=== PATIENT | female | born 1945 | race Caucasian/White ===

== ENCOUNTER 2017-07-14 04:39 | Observation (INO) | payer OTHER ==
[~2017-07-14 04:39] MED LIST: ACTONEL150 MG PO; ARAVA10 MG PO; ASPIR-LOW81 MG PO; Arava PO; CALCIUM 600 MG1 EACH PO; CENTRUM SILVER1 EAC3 PO; CLONAZEPAM0.5 MG PO; DELTASONE10 MG PO; DULCOLAX5 MG PO; EMBREL; ENBREL50 MG/1 ML SC; ENDOCET 5-3251 EACH PO; ESCITALOPRAM OXA5 MG PO; FISH OIL500 MG PO; FOLIC ACID1 MG PO; Flexeril PO; GEMFIBROZIL600 MG PO; KLONOPIN0.5 M1 PO; Klonopin PO; LEFLUNOMIDE10 MG PO; LEXAPRO5 MG PO; LIDODERM 5% P1 PATCH TD; LISINOPRIL-HCT1 EACH PO; LYRICA100 MG PO; MOBIC15 MG PO; MOBIC7.5 MG PO; NITROSTAT0.4 MG SL; Niacin PO; OxyCONTIN PO; Oyst-Cal D, Oscal W/ PO; PRAVASTATIN SOD80 MG PO; PROTONIX40 MG PO; QVAR 80 MCG IN7.3 GM IH; RECLAST5 MG/100 M IV; THERAGRAN1 TABLET PO; TOPROL XL100 MG PO; TRAMADOL HCL50 MG PO; TRAMADOL-ACETA1 EACH PO; Tylenol Regular Stre PO; ULTRAM50 MG PO; VENTOLIN HFA18 GM IH; VITAMIN D-32000 UNI1 PO; VITAMIN D1000 INTUN PO; VITAMIN D1000 UNIT PO; WOMEN'S 50+ DA1 EACH PO; XARELTO15 MG PO; ZESTORETIC 10-1 EAC1 PO; ZESTORETIC 10-1 EACH PO; ZOLEDRONIC5 MG/100 M IV; Zestoretic,Prinzide PO
[2017-07-14 05:49] LABS: HEMATOCRIT 40.5 % (36.0-46.0); MCH 29.5 PG (29.0-34.0); MCHC 32.6 G/DL (30.0-36.0); MCV 90.6 FL (83-99); MEAN PLAT.VOLUME 11.3 uM^3 (9.5-12.4); PLATELET COUNT 177 K/uL (156-360); RBC DIS.WIDTH-CV 12.7 % (11.8-14.6); RBC DIS.WIDTH-SD 41.6 % (39-53); RED BLOOD COUNT 4.47 M/uL (3.80-5.20); WHITE BLOOD COUNT 11.2 K/uL (4.1-10.2)
[2017-07-14 05:54] LABS: INTER. NORMALIZED RATIO 1.2; PROTHROMBIN TIME 13.3 SEC (10.2-12.9)
[2017-07-14 05:57] LABS: PTT 33.6 SEC (25-37)
[2017-07-14 05:57] LABS: CHLORIDE 104 mEq/L (99-109); POTASSIUM 4.3 mEq/L (3.7-5.4); SODIUM 141 mEq/L (136-147)
[2017-07-14 06:00] LABS: GLUCOSE 149 mg/dL (70-99)
[2017-07-14 06:01] LABS: ANION GAP 15 MEQ/L (2-14)
[2017-07-14 06:02] LABS: TOTAL BILIRUBIN 0.2 mg/dL (0.0-1.0)
[2017-07-14 06:03] LABS: ALKALINE PHOSPHATASE 58 IU/L (3-129)
[2017-07-14 06:04] LABS: GFR ESTIMATE (CALCULATED) 52 mL/min/
[2017-07-14 06:05] LABS: DIRECT BILIRUBIN 0.1 mg/dL (0.0-0.3); UREA NITROGEN (BUN) 30 mg/dL (9-23)
[2017-07-14 06:07] LABS: LIPASE 55 U/L (1.0-51.0)
[2017-07-14 06:10] LABS: TROP-I INTERPRETATION NEGATIVE; TROPONIN-I < 0.01 ng/mL (0.0-0.30)
[2017-07-14 08:04] LABS: D-DIMER ELISA < 150.00 ng/mLDDU (<230)
[2017-07-14] MEDS ORDERED: ONGLYZA2.5 MG PO (09:06)
[2017-07-14] MEDS ORDERED: GLUCOPHAGE XR,500 MG PO (09:07)
[2017-07-14] MEDS ORDERED: XARELTO20 MG PO (09:12)
[2017-07-14] MEDS ORDERED: REMICADE10 MG/ML IV (09:13)
[2017-07-14] MEDS ORDERED: PROLIA60 MG/1 ML SC (09:14)
[2017-07-14 13:08] LABS: TROP-I INTERPRETATION NEGATIVE; TROPONIN-I 0.01 ng/mL (0.0-0.30)
[2017-07-14 17:30] VITALS: BP 163/72
[2017-07-14 17:31] LABS: POINT-OF-CARE METER ID UU13113700
[2017-07-14 19:14] LABS: TROP-I INTERPRETATION NEGATIVE; TROPONIN-I 0.04 ng/mL (0.0-0.30)
[2017-07-14 19:42] VITALS: BP 108/52
[2017-07-14 20:40] VITALS: BP 128/68
[2017-07-14 21:49] LABS: POINT-OF-CARE METER ID UU13113831
[2017-07-14 23:50] VITALS: BP 170/79
[2017-07-15 01:13] LABS: TROP-I INTERPRETATION NEGATIVE; TROPONIN-I < 0.01 ng/mL (0.0-0.30)
[2017-07-15 04:00] VITALS: BP 125/60
[2017-07-15] MEDS ORDERED: LISINOPRIL10 MG PO (09:15)
[2017-07-15 09:30] VITALS: BP 117/54
== END 2017-07-15 14:18 | disposition home or self-care (01) ==
LOC: EME 04:39 → 5WEST 07:42 → EDOF 07:42 → ENRESERV 07:52 → 5WEST 16:49 → ENPENDDIS 07-15 → 5WEST 07-15 14:18
PROVIDERS: Emergency Medicine; Hospitalist
DX: R07.89 Other chest pain (principal); I10 Essential (primary) hypertension; Z86.711 Personal history of pulmonary embolism; I25.2 Old myocardial infarction; F41.9 Anxiety disorder, unspecified; E78.5 Hyperlipidemia, unspecified; K21.9 Gastro-esophageal reflux disease without esophagitis; E11.9 Type 2 diabetes mellitus without complications; Z79.01 Long term (current) use of anticoagulants; M06.9 Rheumatoid arthritis, unspecified; M41.9 Scoliosis, unspecified; Z87.891 Personal history of nicotine dependence; Z95.828 Presence of other vascular implants and grafts; M81.0 Age-related osteoporosis without current pathological fracture; Z88.1 Allergy status to other antibiotic agents; Z88.8 Allergy status to other drugs, medicaments and biological substances
CPT/HCPCS: 71020; 80048; 80076; 81003; 82948; 83605; 83690; 84484; 85027; 85379; 85610; 85730; 93005; 94799; 99202; 99281; 99285; G0378; J7030

== ENCOUNTER 2017-07-25 03:36 | Emergency (ER) | payer OTHER ==
[~2017-07-25] VITALS: Ht 160 cm; Wt 83.0 kg
[~2017-07-25 03:36] MED LIST changes: +GLUCOPHAGE XR,500 MG PO; +LISINOPRIL10 MG PO; +ONGLYZA2.5 MG PO; +PROLIA60 MG/1 ML SC; +REMICADE10 MG/ML IV; +XARELTO20 MG PO
[2017-07-25 04:45] LABS: HEMATOCRIT 40.4 % (36.0-46.0); MCH 29.1 PG (29.0-34.0); MCHC 31.9 G/DL (30.0-36.0); MCV 91.2 FL (83-99); MEAN PLAT.VOLUME 11.5 uM^3 (9.5-12.4); PLATELET COUNT 199 K/uL (156-360); RBC DIS.WIDTH-CV 13.1 % (11.8-14.6); RBC DIS.WIDTH-SD 43.6 % (39-53); RED BLOOD COUNT 4.43 M/uL (3.80-5.20); WHITE BLOOD COUNT 8.7 K/uL (4.1-10.2)
[2017-07-25 04:58] LABS: CHLORIDE 107 mEq/L (99-109); POTASSIUM 3.8 mEq/L (3.7-5.4); SODIUM 142 mEq/L (136-147)
[2017-07-25 04:59] LABS: GLUCOSE 152 mg/dL (70-99)
[2017-07-25 05:01] LABS: ANION GAP 13 MEQ/L (2-14)
[2017-07-25 05:03] LABS: GFR ESTIMATE (CALCULATED) 47 mL/min/
[2017-07-25 05:04] LABS: UREA NITROGEN (BUN) 25 mg/dL (9-23)
[2017-07-25 05:07] LABS: TROP-I INTERPRETATION NEGATIVE; TROPONIN-I < 0.01 ng/mL (0.0-0.30)
[2017-07-25 06:15] VITALS: BP 159/88
== END 2017-07-25 06:21 | disposition home or self-care (01) ==
LOC: EME 03:36
PROVIDERS: Emergency Medicine
DX: R07.9 Chest pain, unspecified (principal); I25.2 Old myocardial infarction; E11.9 Type 2 diabetes mellitus without complications; Z79.84 Long term (current) use of oral hypoglycemic drugs; I10 Essential (primary) hypertension; Z86.718 Personal history of other venous thrombosis and embolism; Z87.891 Personal history of nicotine dependence; F41.9 Anxiety disorder, unspecified; K21.9 Gastro-esophageal reflux disease without esophagitis; M06.9 Rheumatoid arthritis, unspecified; Z88.8 Allergy status to other drugs, medicaments and biological substances
CPT/HCPCS: 71020; 80048; 84484; 85027; 93005; 99281; 99284

== ENCOUNTER 2017-08-03 04:32 | Emergency (ER) | payer OTHER ==
[~2017-08-03] VITALS: Ht 160 cm; Wt 83.1 kg
[2017-08-03 06:09] LABS: CHLORIDE 106 mEq/L (99-109); EOSINOPHIL (%) 2.6 % (0-5); EOSINOPHIL COUNT 0.2 K/uL (0-0.3); HEMATOCRIT 42.1 % (36.0-46.0); IMMATURE GRANULOCYTE (%) 0.2 % (0.0-0.7); INSTRUMENT ABS NEUTROPHIL CT 5.5 K/uL; MCHC 32.1 G/DL (30.0-36.0); MCV 90.5 FL (83-99); MEAN PLAT.VOLUME 11.7 uM^3 (9.5-12.4); MONOCYTE (%) 8.5 % (3-12); MONOCYTE COUNT 0.7 K/uL (0-0.8); NEUTROPHIL (%) 64.6 % (45-76); NEUTROPHIL COUNT 5.5 K/uL (1.8-6.4); PLATELET COUNT 191 K/uL (156-360); POTASSIUM 3.9 mEq/L (3.7-5.4); RBC DIS.WIDTH-SD 42.9 % (39-53); RED BLOOD COUNT 4.65 M/uL (3.80-5.20); SODIUM 139 mEq/L (136-147); WHITE BLOOD COUNT 8.5 K/uL (4.1-10.2)
[2017-08-03 06:10] LABS: GLUCOSE 149 mg/dL (70-99)
[2017-08-03 06:12] LABS: ANION GAP 7 MEQ/L (2-14)
[2017-08-03 06:14] LABS: GFR ESTIMATE (CALCULATED) 52 mL/min/
[2017-08-03 06:15] LABS: UREA NITROGEN (BUN) 15 mg/dL (9-23)
[2017-08-03] MEDS ORDERED: XANAX0.5 MG PO (06:28)
[2017-08-03 06:37] VITALS: BP 132/79
== END 2017-08-03 06:39 | disposition home or self-care (01) ==
LOC: EME 04:32
PROVIDERS: Emergency Medicine
DX: F41.1 Generalized anxiety disorder (principal); I10 Essential (primary) hypertension; R42 Dizziness and giddiness; E11.9 Type 2 diabetes mellitus without complications; Z79.84 Long term (current) use of oral hypoglycemic drugs; I25.2 Old myocardial infarction; K21.9 Gastro-esophageal reflux disease without esophagitis; M06.9 Rheumatoid arthritis, unspecified; Z86.718 Personal history of other venous thrombosis and embolism; Z88.8 Allergy status to other drugs, medicaments and biological substances; Z87.891 Personal history of nicotine dependence
CPT/HCPCS: 70450; 80048; 85025; 93005; 99281; 99284

== ENCOUNTER 2017-08-06 01:06 | Emergency (ER) | payer OTHER ==
[~2017-08-06] VITALS: Ht 162.6 cm; Wt 83.1 kg
[~2017-08-06 01:06] MED LIST changes: +XANAX0.5 MG PO
[2017-08-06 03:55] LABS: HEMATOCRIT 40.7 % (36.0-46.0); MCH 29.6 PG (29.0-34.0); MCHC 32.4 G/DL (30.0-36.0); MCV 91.3 FL (83-99); PLATELET COUNT 181 K/uL (156-360); RBC DIS.WIDTH-SD 43.4 % (39-53); RED BLOOD COUNT 4.46 M/uL (3.80-5.20); WHITE BLOOD COUNT 7.7 K/uL (4.1-10.2)
[2017-08-06 04:06] LABS: CHLORIDE 104 mEq/L (99-109); POTASSIUM 3.6 mEq/L (3.7-5.4); SODIUM 141 mEq/L (136-147)
[2017-08-06 04:08] LABS: GLUCOSE 140 mg/dL (70-99)
[2017-08-06 04:09] LABS: ANION GAP 10 MEQ/L (2-14)
[2017-08-06 04:10] LABS: TOTAL BILIRUBIN 0.3 mg/dL (0.0-1.0)
[2017-08-06 04:11] LABS: ALKALINE PHOSPHATASE 49 IU/L (3-129)
[2017-08-06 04:12] LABS: GFR ESTIMATE (CALCULATED) 58 mL/min/
[2017-08-06 04:13] LABS: UREA NITROGEN (BUN) 22 mg/dL (9-23)
[2017-08-06 04:15] LABS: LIPASE 41 U/L (1.0-51.0)
[2017-08-06 04:16] LABS: TROP-I INTERPRETATION NEGATIVE; TROPONIN-I < 0.01 ng/mL (0.0-0.30)
[2017-08-06 05:55] VITALS: BP 139/89
== END 2017-08-06 06:03 | disposition home or self-care (01) ==
LOC: EME 01:06
PROVIDERS: Emergency Medicine
DX: I10 Essential (primary) hypertension (principal); R51 Headache; M06.9 Rheumatoid arthritis, unspecified; E11.9 Type 2 diabetes mellitus without complications; Z79.84 Long term (current) use of oral hypoglycemic drugs; Z87.891 Personal history of nicotine dependence; Z88.8 Allergy status to other drugs, medicaments and biological substances
CPT/HCPCS: 80053; 83690; 84484; 85027; 93005; 99281; 99284

== ENCOUNTER 2018-03-25 09:03 | Inpatient (IN) | payer OTHER ==
[~2018-03-25] VITALS: Ht 160 cm; Wt 82.5 kg
[2018-03-25 10:09] LABS: HEMOGLOBIN 13.9 G/DL (11.9-15.5); MCH 29.1 PG (29.0-34.0); MCHC 32.3 G/DL (30.0-36.0); MCV 90.1 FL (83-99); PLATELET COUNT 244 K/uL (156-360); RBC DIS.WIDTH-CV 12.7 % (11.8-14.6); RBC DIS.WIDTH-SD 42.4 % (39-53); RED BLOOD COUNT 4.77 M/uL (3.80-5.20); WHITE BLOOD COUNT 12.8 K/uL (4.1-10.2)
[2018-03-25 10:13] LABS: ALBUMIN 4.4 g/dL (3.2-4.8); CHLORIDE 102 mEq/L (99-109); POTASSIUM 4.8 mEq/L (3.7-5.4); SODIUM 139 mEq/L (136-147)
[2018-03-25 10:15] LABS: GLUCOSE 235 mg/dL (70-99)
[2018-03-25 10:16] LABS: TOTAL PROTEIN 8.7 g/dL (6.4-8.3)
[2018-03-25 10:17] LABS: TOTAL BILIRUBIN 0.3 mg/dL (0.0-1.0)
[2018-03-25 10:19] LABS: ALKALINE PHOSPHATASE 82 IU/L (3-129); CREATININE 1.9 mg/dL (0.6-1.3); GFR ESTIMATE (CALCULATED) 28 mL/min/
[2018-03-25 10:20] LABS: UREA NITROGEN (BUN) 39 mg/dL (9-23)
[2018-03-25 10:21] LABS: AST (GOT) 20 IU/L (2-34)
[2018-03-25 10:22] LABS: ALT (GPT) 24 IU/L (3-49)
[2018-03-25 10:23] LABS: LIPASE 67 U/L (1.0-51.0)
[2018-03-25 10:51] LABS: C DIFF TOXIN POSITIVE (NEGATIVE)
[2018-03-25] MEDS ORDERED: ASPIR-LOW81 MG PO (13:29)
[2018-03-25] MEDS ORDERED: LISINOPRIL-HCT1 EACH PO (13:31)
[2018-03-25] MEDS ORDERED: PROTONIX40 MG PO (13:32)
[2018-03-25] MEDS ORDERED: MIRTAZAPINE7.5 MG PO (13:33)
[2018-03-25] MEDS ORDERED: POTASSIUM CITR15 MEQ PO (13:33)
[2018-03-25] MEDS ORDERED: BUSPAR10 MG PO (13:34)
[2018-03-25] MEDS ORDERED: CLEOCIN300 MG PO (13:35)
[2018-03-25 17:43] VITALS: BP 180/78
[2018-03-25 23:55] VITALS: BP 168/88
[2018-03-26 05:48] LABS: HEMATOCRIT 36.3 % (36.0-46.0); MCH 28.5 PG (29.0-34.0); MCHC 31.7 G/DL (30.0-36.0); MCV 89.9 FL (83-99); PLATELET COUNT 177 K/uL (156-360); RBC DIS.WIDTH-CV 12.7 % (11.8-14.6); RBC DIS.WIDTH-SD 41.6 % (39-53); RED BLOOD COUNT 4.04 M/uL (3.80-5.20); WHITE BLOOD COUNT 10.9 K/uL (4.1-10.2)
[2018-03-26 05:53] LABS: HEMOGLOBIN 11.5 G/DL (11.9-15.5)
[2018-03-26 06:01] LABS: CHLORIDE 106 MEQ/L (99-109); CREATININE 1.7 MG/DL (0.6-1.3); GFR ESTIMATE (CALCULATED) 32 mL/min/; GLUCOSE 165 mg/dL (70-99); POTASSIUM 5.6 MEQ/L (3.7-5.4); SODIUM 137 MEQ/L (136-147); UREA NITROGEN (BUN) 35 mg/dL (9-23)
[2018-03-26 08:07] VITALS: BP 166/80
[2018-03-26 10:43] LABS: HEMOGLOBIN A1c (GLYCOHEMOGLOB) 6.8 % (Below 5.7)
[2018-03-26 12:22] LABS: CHLORIDE 104 MEQ/L (99-109); CREATININE 1.6 MG/DL (0.6-1.3); GFR ESTIMATE (CALCULATED) 34 mL/min/; GLUCOSE 223 mg/dL (70-99); POTASSIUM 4.5 MEQ/L (3.7-5.4); SODIUM 136 MEQ/L (136-147); UREA NITROGEN (BUN) 36 mg/dL (9-23)
[2018-03-26 17:15] VITALS: BP 148/76
[2018-03-27 00:45] VITALS: BP 152/77
[2018-03-27 05:51] LABS: MCH 28.6 PG (29.0-34.0); MCHC 32.5 G/DL (30.0-36.0); MCV 88.1 FL (83-99); RBC DIS.WIDTH-CV 12.8 % (11.8-14.6); RBC DIS.WIDTH-SD 41.2 % (39-53); RED BLOOD COUNT 4.54 M/uL (3.80-5.20); WHITE BLOOD COUNT 14.5 K/uL (4.1-10.2)
[2018-03-27 05:52] LABS: PLATELET COUNT 250 K/uL (156-360)
[2018-03-27 06:24] LABS: CHLORIDE 99 MEQ/L (99-109); CREATININE 1.6 MG/DL (0.6-1.3); GFR ESTIMATE (CALCULATED) 34 mL/min/; GLUCOSE 174 mg/dL (70-99); POTASSIUM 4.4 MEQ/L (3.7-5.4); SODIUM 134 MEQ/L (136-147); UREA NITROGEN (BUN) 35 mg/dL (9-23)
[2018-03-27 07:57] VITALS: BP 195/83
[2018-03-27 08:15] VITALS: BP 148/66
[2018-03-27 16:27] VITALS: BP 165/72
[2018-03-27 23:38] VITALS: BP 183/83
[2018-03-28 06:06] LABS: HEMATOCRIT 38.4 % (36.0-46.0); HEMOGLOBIN 12.8 G/DL (11.9-15.5); MCH 28.7 PG (29.0-34.0); MCHC 33.3 G/DL (30.0-36.0); MCV 86.1 FL (83-99); PLATELET COUNT 228 K/uL (156-360); RBC DIS.WIDTH-CV 12.7 % (11.8-14.6); RBC DIS.WIDTH-SD 39.8 % (39-53); RED BLOOD COUNT 4.46 M/uL (3.80-5.20); WHITE BLOOD COUNT 13.6 K/uL (4.1-10.2)
[2018-03-28 06:10] VITALS: BP 148/76
[2018-03-28 06:23] LABS: CHLORIDE 96 MEQ/L (99-109); CREATININE 1.4 MG/DL (0.6-1.3); GFR ESTIMATE (CALCULATED) 40 mL/min/; GLUCOSE 192 mg/dL (70-99); POTASSIUM 3.8 MEQ/L (3.7-5.4); SODIUM 131 MEQ/L (136-147); UREA NITROGEN (BUN) 30 mg/dL (9-23)
[2018-03-28 08:01] VITALS: BP 181/75
[2018-03-28 10:28] VITALS: BP 136/62
[2018-03-28 15:19] VITALS: BP 147/71
[2018-03-29 00:29] VITALS: BP 168/87
[2018-03-29 07:24] VITALS: BP 160/82
[2018-03-29 09:15] LABS: CHLORIDE 93 MEQ/L (99-109); CREATININE 1.4 MG/DL (0.6-1.3); GFR ESTIMATE (CALCULATED) 40 mL/min/; GLUCOSE 196 mg/dL (70-99); POTASSIUM 3.8 MEQ/L (3.7-5.4); SODIUM 130 MEQ/L (136-147); UREA NITROGEN (BUN) 32 mg/dL (9-23)
[2018-03-29 15:53] VITALS: BP 149/79
[2018-03-29 23:33] VITALS: BP 159/65
[2018-03-30 07:03] LABS: BASOPHIL (%) 0.2 % (0-1); EOSINOPHIL (%) 0.2 % (0-5); HEMATOCRIT 40.2 % (36.0-46.0); HEMOGLOBIN 13.4 G/DL (11.9-15.5); IMMATURE GRANULOCYTE (%) 0.2 % (0.0-0.7); LYMPHOCYTE (%) 10.5 % (15-42); LYMPHOCYTE COUNT 1.3 K/uL (1.0-2.8); MCH 28.2 PG (29.0-34.0); MCHC 33.3 G/DL (30.0-36.0); MCV 84.6 FL (83-99); MONOCYTE (%) 7.5 % (3-12); MONOCYTE COUNT 0.9 K/uL (0-0.8); NEUTROPHIL (%) 81.4 % (45-76); NEUTROPHIL COUNT 10.3 K/uL (1.8-6.4); RBC DIS.WIDTH-CV 12.6 % (11.8-14.6); RBC DIS.WIDTH-SD 38.7 % (39-53); RED BLOOD COUNT 4.75 M/uL (3.80-5.20); WHITE BLOOD COUNT 12.6 K/uL (4.1-10.2)
[2018-03-30 07:24] LABS: ALBUMIN 2.8 G/DL (3.2-4.8); ALKALINE PHOSPHATASE 89 IU/L (3-129); ALT (GPT) 53 IU/L (3-49); AST (GOT) 40 IU/L (2-34); CHLORIDE 92 MEQ/L (99-109); CREATININE 1.4 MG/DL (0.6-1.3); GFR ESTIMATE (CALCULATED) 40 mL/min/; GLUCOSE 194 mg/dL (70-99); POTASSIUM 3.7 MEQ/L (3.7-5.4); SODIUM 130 MEQ/L (136-147); TOTAL BILIRUBIN 0.7 MG/DL (0.0-1.0); TOTAL PROTEIN 5.5 G/DL (6.4-8.3); UREA NITROGEN (BUN) 36 mg/dL (9-23)
[2018-03-30 07:46] LABS: PLATELET COUNT 319 K/uL (156-360)
[2018-03-30 07:54] VITALS: BP 142/79
[2018-03-30 16:02] VITALS: BP 137/67
[2018-03-30 23:29] VITALS: BP 126/61
[2018-03-31 06:18] LABS: HEMATOCRIT 39.4 % (36.0-46.0); HEMOGLOBIN 12.9 G/DL (11.9-15.5); MCH 28.2 PG (29.0-34.0); MCHC 32.7 G/DL (30.0-36.0); MCV 86.2 FL (83-99); PLATELET COUNT 292 K/uL (156-360); RBC DIS.WIDTH-CV 12.7 % (11.8-14.6); RED BLOOD COUNT 4.57 M/uL (3.80-5.20)
[2018-03-31 06:47] LABS: CHLORIDE 93 MEQ/L (99-109); CREATININE 1.6 MG/DL (0.6-1.3); GFR ESTIMATE (CALCULATED) 34 mL/min/; GLUCOSE 149 mg/dL (70-99); POTASSIUM 3.9 MEQ/L (3.7-5.4); SODIUM 132 MEQ/L (136-147); UREA NITROGEN (BUN) 39 mg/dL (9-23)
[2018-03-31 07:17] VITALS: BP 148/70
[2018-03-31 22:58] VITALS: BP 158/69
[2018-04-01 07:31] VITALS: BP 164/68
[2018-04-01 07:47] LABS: CHLORIDE 96 MEQ/L (99-109); CREATININE 1.4 MG/DL (0.6-1.3); GFR ESTIMATE (CALCULATED) 40 mL/min/; GLUCOSE 139 mg/dL (70-99); POTASSIUM 4.1 MEQ/L (3.7-5.4); SODIUM 133 MEQ/L (136-147); UREA NITROGEN (BUN) 35 mg/dL (9-23)
[2018-04-01 16:02] VITALS: BP 148/64
[2018-04-02] VITALS (12 sets, daily range): BP systolic 88–159; BP diastolic 53–67
[2018-04-02 06:41] LABS: CHLORIDE 100 MEQ/L (99-109); CREATININE 1.6 MG/DL (0.6-1.3); GFR ESTIMATE (CALCULATED) 34 mL/min/; POTASSIUM 4.5 MEQ/L (3.7-5.4); SODIUM 134 MEQ/L (136-147)
[2018-04-02 06:43] LABS: GLUCOSE 275 mg/dL (70-99); UREA NITROGEN (BUN) 56 mg/dL (9-23)
[2018-04-02 10:58] LABS: HEMATOCRIT 27.2 % (36.0-46.0); MCH 28.6 PG (29.0-34.0); MCHC 31.6 G/DL (30.0-36.0); PLATELET COUNT 277 K/uL (156-360); RBC DIS.WIDTH-SD 42.9 % (39-53); WHITE BLOOD COUNT 13.5 K/uL (4.1-10.2)
[2018-04-02 10:59] LABS: HEMOGLOBIN 8.6 G/DL (11.9-15.5); MCV 90.4 FL (83-99); RED BLOOD COUNT 3.01 M/uL (3.80-5.20)
[2018-04-02 13:07] LABS: STOOL OCCULT BLD 1ST SPECIMEN POSITIVE
[2018-04-02 16:16] LABS: PTT 38.2 SEC (25-37)
[2018-04-02 19:02] LABS: HEMOGLOBIN 7.7 G/DL (11.9-15.5); MCV 90.2 FL (83-99)
[2018-04-03] VITALS (10 sets, daily range): BP systolic 135–162; BP diastolic 56–77
[2018-04-03 06:14] LABS: HEMATOCRIT 31.7 % (36.0-46.0); MCH 28.4 PG (29.0-34.0); MCHC 33.1 G/DL (30.0-36.0); PLATELET COUNT 258 K/uL (156-360); RBC DIS.WIDTH-CV 14.3 % (11.8-14.6); RBC DIS.WIDTH-SD 44.3 % (39-53); WHITE BLOOD COUNT 13.1 K/uL (4.1-10.2)
[2018-04-03 06:22] LABS: HEMOGLOBIN 10.5 G/DL (11.9-15.5); MCV 85.7 FL (83-99)
[2018-04-03 06:28] LABS: ALBUMIN 2.2 G/DL (3.2-4.8); MAGNESIUM 1.4 mg/dl (1.3-2.7)
[2018-04-03 06:30] LABS: CHLORIDE 103 MEQ/L (99-109); CREATININE 1.7 MG/DL (0.6-1.3); GFR ESTIMATE (CALCULATED) 32 mL/min/; GLUCOSE 190 mg/dL (70-99); POTASSIUM 3.8 MEQ/L (3.7-5.4); SODIUM 140 MEQ/L (136-147); UREA NITROGEN (BUN) 67 mg/dL (9-23)
[2018-04-03 06:43] LABS: HEMATOCRIT 31.3 % (36.0-46.0); HEMOGLOBIN 10.5 G/DL (11.9-15.5); MCH 28.6 PG (29.0-34.0); MCHC 33.5 G/DL (30.0-36.0); MCV 85.3 FL (83-99); PLATELET COUNT 254 K/uL (156-360); RBC DIS.WIDTH-CV 14.3 % (11.8-14.6); RBC DIS.WIDTH-SD 44.7 % (39-53); RED BLOOD COUNT 3.67 M/uL (3.80-5.20); WHITE BLOOD COUNT 12.7 K/uL (4.1-10.2)
[2018-04-03 08:11] LABS: PTT 28.1 SEC (25-37)
[2018-04-03 08:14] LABS: INTER. NORMALIZED RATIO 1.6
[2018-04-03 11:57] LABS: HEMATOCRIT 30.7 % (36.0-46.0); HEMOGLOBIN 10.2 G/DL (11.9-15.5)
[2018-04-03 15:02] LABS: HEMATOCRIT 29.5 % (36.0-46.0); HEMOGLOBIN 9.9 G/DL (11.9-15.5)
[2018-04-03 18:53] LABS: HEMOGLOBIN 9.1 G/DL (11.9-15.5); MCV 87.1 FL (83-99)
[2018-04-04 00:35] VITALS: BP 154/61
[2018-04-04 03:52] LABS: HEMATOCRIT 26.2 % (36.0-46.0); HEMOGLOBIN 8.9 G/DL (11.9-15.5); MCH 29.7 PG (29.0-34.0); MCV 87.3 FL (83-99); PLATELET COUNT 228 K/uL (156-360); RBC DIS.WIDTH-CV 14.9 % (11.8-14.6); RBC DIS.WIDTH-SD 47.6 % (39-53); WHITE BLOOD COUNT 11.3 K/uL (4.1-10.2)
[2018-04-04 03:59] LABS: INTER. NORMALIZED RATIO 1.3
[2018-04-04 04:02] LABS: ALBUMIN 2.2 g/dL (3.2-4.8); CHLORIDE 106 mEq/L (99-109); POTASSIUM 3.9 mEq/L (3.7-5.4); SODIUM 139 mEq/L (136-147)
[2018-04-04 04:08] LABS: GFR ESTIMATE (CALCULATED) 47 mL/min/; PHOSPHORUS 2.7 mg/dL (2.5-4.9)
[2018-04-04 04:10] LABS: CREATININE 1.2 mg/dL (0.6-1.3); GLUCOSE 108 mg/dL (70-99); UREA NITROGEN (BUN) 33 mg/dL (9-23)
[2018-04-04 07:32] VITALS: BP 137/63
[2018-04-04 11:13] LABS: HEMATOCRIT 27.5 % (36.0-46.0); MCV 88.7 FL (83-99)
[2018-04-04 14:50] LABS: HEMATOCRIT 26.2 % (36.0-46.0); HEMOGLOBIN 8.5 G/DL (11.9-15.5); MCV 88.8 FL (83-99)
[2018-04-04 15:25] VITALS: BP 161/74
[2018-04-04 19:05] LABS: HEMOGLOBIN 9.2 G/DL (11.9-15.5); MCV 89.2 FL (83-99)
[2018-04-04 22:40] LABS: HEMOGLOBIN 9.2 G/DL (11.9-15.5); MCV 88.8 FL (83-99)
[2018-04-05 00:17] VITALS: BP 172/73
[2018-04-05 03:18] LABS: HEMATOCRIT 27.3 % (36.0-46.0); HEMATOCRIT 27.5 % (36.0-46.0); HEMOGLOBIN 9.1 G/DL (11.9-15.5); HEMOGLOBIN 9.2 G/DL (11.9-15.5); MCH 29.6 PG (29.0-34.0); MCHC 33.5 G/DL (30.0-36.0); MCV 88.4 FL (83-99); MCV 88.9 FL (83-99); PLATELET COUNT 249 K/uL (156-360); RBC DIS.WIDTH-CV 14.6 % (11.8-14.6); RBC DIS.WIDTH-SD 47.1 % (39-53); RED BLOOD COUNT 3.11 M/uL (3.80-5.20); WHITE BLOOD COUNT 9.9 K/uL (4.1-10.2)
[2018-04-05 03:27] LABS: ALBUMIN 2.3 g/dL (3.2-4.8)
[2018-04-05 03:28] LABS: CHLORIDE 102 mEq/L (99-109); POTASSIUM 4.2 mEq/L (3.7-5.4); SODIUM 138 mEq/L (136-147)
[2018-04-05 03:30] LABS: GLUCOSE 100 mg/dL (70-99)
[2018-04-05 03:33] LABS: CREATININE 1.1 mg/dL (0.6-1.3); GFR ESTIMATE (CALCULATED) 52 mL/min/; PHOSPHORUS 3.2 mg/dL (2.5-4.9)
[2018-04-05 03:34] LABS: UREA NITROGEN (BUN) 21 mg/dL (9-23)
[2018-04-05 07:25] VITALS: BP 148/62
[2018-04-05 15:47] LABS: HEMATOCRIT 30.5 % (36.0-46.0); HEMOGLOBIN 9.7 G/DL (11.9-15.5); MCV 90.2 FL (83-99)
[2018-04-05 15:59] VITALS: BP 173/78
[2018-04-05 23:09] VITALS: BP 183/78
[2018-04-06 05:34] LABS: HEMATOCRIT 29.6 % (36.0-46.0); HEMOGLOBIN 9.4 G/DL (11.9-15.5); MCH 28.3 PG (29.0-34.0); MCHC 31.8 G/DL (30.0-36.0); MCV 89.2 FL (83-99); PLATELET COUNT 279 K/uL (156-360); RBC DIS.WIDTH-CV 14.3 % (11.8-14.6); RBC DIS.WIDTH-SD 46.2 % (39-53); RED BLOOD COUNT 3.32 M/uL (3.80-5.20); WHITE BLOOD COUNT 11.7 K/uL (4.1-10.2)
[2018-04-06 06:14] LABS: ALBUMIN 2.2 G/DL (3.2-4.8); CHLORIDE 100 MEQ/L (99-109); CREATININE 1.5 MG/DL (0.6-1.3); GFR ESTIMATE (CALCULATED) 36 mL/min/; GLUCOSE 117 mg/dL (70-99); PHOSPHORUS 3.6 mg/dL (2.5-4.9); SODIUM 139 MEQ/L (136-147); UREA NITROGEN (BUN) 23 mg/dL (9-23)
[2018-04-06 07:16] VITALS: BP 154/79
[2018-04-06 11:00] VITALS: BP 155/79
[2018-04-06 12:24] LABS: HEMATOCRIT 32.3 % (36.0-46.0); HEMOGLOBIN 10.2 G/DL (11.9-15.5); MCV 89.7 FL (83-99)
[2018-04-06 15:21] VITALS: BP 169/77
[2018-04-06 18:27] LABS: HEMATOCRIT 32.4 % (36.0-46.0); HEMOGLOBIN 10.4 G/DL (11.9-15.5); MCV 89.5 FL (83-99)
[2018-04-06 20:01] VITALS: BP 166/77
[2018-04-07 00:12] VITALS: BP 171/76
[2018-04-07 05:51] LABS: HEMATOCRIT 29.6 % (36.0-46.0); HEMOGLOBIN 9.5 G/DL (11.9-15.5); MCH 28.6 PG (29.0-34.0); MCHC 32.1 G/DL (30.0-36.0); MCV 89.2 FL (83-99); PLATELET COUNT 307 K/uL (156-360); RBC DIS.WIDTH-CV 14.2 % (11.8-14.6); RED BLOOD COUNT 3.32 M/uL (3.80-5.20); WHITE BLOOD COUNT 11.6 K/uL (4.1-10.2)
[2018-04-07 06:26] LABS: CHLORIDE 101 MEQ/L (99-109); CREATININE 1.4 MG/DL (0.6-1.3); GFR ESTIMATE (CALCULATED) 40 mL/min/; GLUCOSE 114 mg/dL (70-99); POTASSIUM 4.2 MEQ/L (3.7-5.4); SODIUM 140 MEQ/L (136-147); UREA NITROGEN (BUN) 23 mg/dL (9-23)
[2018-04-07 07:50] VITALS: BP 153/68
[2018-04-07 15:22] VITALS: BP 162/68
[2018-04-08 00:52] VITALS: BP 142/80
[2018-04-08 06:21] LABS: HEMATOCRIT 30.5 % (36.0-46.0); HEMOGLOBIN 9.6 G/DL (11.9-15.5); MCH 28.3 PG (29.0-34.0); MCHC 31.5 G/DL (30.0-36.0); PLATELET COUNT 321 K/uL (156-360); RBC DIS.WIDTH-CV 14.2 % (11.8-14.6); RED BLOOD COUNT 3.39 M/uL (3.80-5.20)
[2018-04-08 08:24] VITALS: BP 148/64
[2018-04-08] MEDS ORDERED: VANCOCIN HCL125 MG PO (11:07)
[2018-04-08] MEDS ORDERED: BENTYL10 MG PO (11:07)
[2018-04-08] MEDS ORDERED: AMLODIPINE BESYL5 MG PO (11:07)
[2018-04-08] MEDS ORDERED: LISINOPRIL10 MG PO (11:08)
[2018-04-08] MEDS ORDERED: FAMOTIDINE20 MG PO (16:18)
== END 2018-04-08 12:50 | disposition home or self-care (01) | DRG 871 ==
LOC: EME 09:03 → 5SOUTH 13:41 → EDOF 13:41 → ENRESERV 13:53 → 5SOUTH 17:07
PROVIDERS: Hospitalist; Internal Medicine; Internal Medicine Gastroenterology; Nurse Practitioner Adult Health; Nurse Practitioner Family; Physician Assistant; Physician Assistant Medical
DX: A41.9 Sepsis, unspecified organism (principal); A04.72 Enterocolitis due to Clostridium difficile, not specified as recurrent; N17.9 Acute kidney failure, unspecified; R65.20 Severe sepsis without septic shock; K26.4 Chronic or unspecified duodenal ulcer with hemorrhage; E87.2 Acidosis; E86.0 Dehydration; E87.1 Hypo-osmolality and hyponatremia; I12.9 Hypertensive chronic kidney disease with stage 1 through stage 4 chronic kidney disease, or unspecified chronic kidney disease; N18.3 Chronic kidney disease, stage 3 (moderate); E11.22 Type 2 diabetes mellitus with diabetic chronic kidney disease; E11.65 Type 2 diabetes mellitus with hyperglycemia; D62 Acute posthemorrhagic anemia; K04.7 Periapical abscess without sinus; K25.9 Gastric ulcer, unspecified as acute or chronic, without hemorrhage or perforation; I25.10 Atherosclerotic heart disease of native coronary artery without angina pectoris; K21.9 Gastro-esophageal reflux disease without esophagitis; E78.5 Hyperlipidemia, unspecified; K44.9 Diaphragmatic hernia without obstruction or gangrene; M06.9 Rheumatoid arthritis, unspecified; F41.8 Other specified anxiety disorders; M81.0 Age-related osteoporosis without current pathological fracture; Z66 Do not resuscitate; E66.9 Obesity, unspecified; Z68.32 Body mass index [BMI] 32.0-32.9, adult; I25.2 Old myocardial infarction; Z79.01 Long term (current) use of anticoagulants; Z79.84 Long term (current) use of oral hypoglycemic drugs; Z79.82 Long term (current) use of aspirin; Z86.711 Personal history of pulmonary embolism; Z87.442 Personal history of urinary calculi; Z87.891 Personal history of nicotine dependence
CPT/HCPCS: 80048; 80048 91; 80053; 80069; 80306 90; 82040; 82272; 82310; 82948; 83036; 83605; 83690; 83735; 83930; 83935; 84300; 85014; 85018; 85025; 85027; 85610; 85730; 86850; 86900; 86901; 86920; 87040; 87493; 87506; 88305; 88342 TC; 94640 76; 99202; 99281; 99285; J0360; J0780; J1815; J1940; J2250; J2405; J2765; J3243; J3475; J7030; J7040; J7050; J7120; P9016; P9017; Q0169; S0028

== ENCOUNTER 2018-04-20 09:40 | Emergency (ER) | payer OTHER ==
[~2018-04-20] VITALS: Ht 160 cm; Wt 78.1 kg
[~2018-04-20 09:40] MED LIST changes: +AMLODIPINE BESYL5 MG PO; +BENTYL10 MG PO; +BUSPAR10 MG PO; +CLEOCIN300 MG PO; +FAMOTIDINE20 MG PO; +MIRTAZAPINE7.5 MG PO; +POTASSIUM CITR15 MEQ PO; +VANCOCIN HCL125 MG PO
[2018-04-20 10:29] LABS: HEMATOCRIT 32.6 % (36.0-46.0); HEMOGLOBIN 9.8 G/DL (11.9-15.5); MCH 27.8 PG (29.0-34.0); MCHC 30.1 G/DL (30.0-36.0); MCV 92.6 FL (83-99); NRBC (%) 0.4 /100 WBC (0-0); PLATELET COUNT 300 K/uL (156-360); RBC DIS.WIDTH-SD 50.1 % (39-53); RED BLOOD COUNT 3.52 M/uL (3.80-5.20); WHITE BLOOD COUNT 13.7 K/uL (4.1-10.2)
[2018-04-20 10:37] LABS: ALBUMIN 3.3 g/dL (3.2-4.8)
[2018-04-20 10:38] LABS: CHLORIDE 103 mEq/L (99-109); POTASSIUM 5.4 mEq/L (3.7-5.4); SODIUM 139 mEq/L (136-147)
[2018-04-20 10:40] LABS: GLUCOSE 395 mg/dL (70-99); TOTAL PROTEIN 7.3 g/dL (6.4-8.3)
[2018-04-20 10:42] LABS: TOTAL BILIRUBIN 0.2 mg/dL (0.0-1.0)
[2018-04-20 10:44] LABS: ALKALINE PHOSPHATASE 142 IU/L (3-129); CREATININE 2.6 mg/dL (0.6-1.3); GFR ESTIMATE (CALCULATED) 19 mL/min/
[2018-04-20 10:45] LABS: AST (GOT) 30 IU/L (2-34); UREA NITROGEN (BUN) 40 mg/dL (9-23)
[2018-04-20 10:47] LABS: ALT (GPT) 30 IU/L (3-49)
[2018-04-20 10:52] LABS: TROP-I INTERPRETATION NEGATIVE; TROPONIN-I 0.02 ng/mL (0.0-0.30)
[2018-04-20 11:06] LABS: INTER. NORMALIZED RATIO 1.2
[2018-04-20 11:09] LABS: PTT 26.8 SEC (25-37)
[2018-04-20 11:25] LABS: PCO2 < 19 mm Hg (35-45); PO2 90 mm Hg (80-100); pH 7.42 (7.35-7.45)
[2018-04-20 11:26] LABS: CARBOXY HGB 1.4 % (0-5); METHEMOGLOBIN 0.9 % (0-1.5); O2 SATURATION (CALCULATED) 95.6 % (95-99)
[2018-04-20 11:27] LABS: COMMENTS - BLOOD GASES A+C+; DEVICE RA; SITE RB
[2018-04-20 14:55] VITALS: BP 123/75
== END 2018-04-20 15:24 | disposition short-term general hospital (02) ==
LOC: EME 09:40
PROVIDERS: Family Medicine
DX: I82.422 Acute embolism and thrombosis of left iliac vein (principal); I82.4Z2 Acute embolism and thrombosis of unspecified deep veins of left distal lower extremity; Z86.711 Personal history of pulmonary embolism; Z86.718 Personal history of other venous thrombosis and embolism; E11.65 Type 2 diabetes mellitus with hyperglycemia; Z79.84 Long term (current) use of oral hypoglycemic drugs; I10 Essential (primary) hypertension; I25.2 Old myocardial infarction; K21.9 Gastro-esophageal reflux disease without esophagitis; F41.9 Anxiety disorder, unspecified; M41.9 Scoliosis, unspecified; M06.9 Rheumatoid arthritis, unspecified; Z88.1 Allergy status to other antibiotic agents; Z87.891 Personal history of nicotine dependence; Z95.828 Presence of other vascular implants and grafts; M81.0 Age-related osteoporosis without current pathological fracture
CPT/HCPCS: 36600; 80053; 82803; 84484; 85027; 85610; 85730; 93005; 93926; 93971; 99281; 99285; J2405; J3010; J7040